=== PATIENT | female | born 1935 | race Caucasian/White ===

== ENCOUNTER 2017-02-18 18:17 | Inpatient (IN) | payer MEDICARE, BC ==
[~2017-02-18] VITALS: Ht 160 cm; Wt 55.3 kg
[2017-02-18 22:53] LABS: BASOPHILS 0.3 % (0-2); EOSINOPHILS 0.4 % (0-7); HEMATOCRIT 41.4 % (36.0-48.0); HEMOGLOBIN 13.6 g/dL (12-16); IMMATURE GRANULOCYTES 0.3 % (0-5); LYMPHOCYTES 25.4 % (15-50); MCHC 32.9 g/dL (31.0-37.0); MCV 91.2 fL (80.0-100.0); MEAN PLATELET VOLUME 10.8 fL (7.4-10.4); NEUTROPHILS 67.6 % (40-80); PLATELET COUNT 195 10x3/uL (130-400); RBC 4.54 10x6/uL (4.00-5.40); RDW 13.3 % (11.5-14.5); WBC 7.6 10x3/uL (4.8-10.8)
[2017-02-18 23:04] LABS: APTT 25.6 SECONDS (22.8-39.4); INR 0.99 (0.85-1.17); PROTIME 12.9 SECONDS (11.6-15.0)
[2017-02-18 23:12] LABS: ALBUMIN 3.7 g/dL (3.4-5.0); ANION GAP 13.1 mmol/L (8-16); BILIRUBIN - TOTAL 0.46 mg/dL (0.2-1.3); CALCIUM 8.8 mg/dL (8.5-10.1); CARBON DIOXIDE 26.7 mmol/L (21.0-32.0); CREATININE - SERUM 0.8 mg/dL (0.6-1.3); POTASSIUM - SERUM 3.8 mmol/L (3.5-5.1); PROTEIN - SERUM 6.9 g/dL (6.4-8.2)
--- NOTE | 2017-02-19 | NUR ---
RECIEVED PT TO FLOOR VIA STRETCHER, HOSPITAL STAFF AND FRIEND. PT IS ALERT AND ORIENTED AND ABLE TO VERBALIZE NEEDS. PT ASSISTED SELF IN TRANSFER FROM STRETCHER TO BED. PT STATES SHE IS ONLY HAVING PAIN WHEN MOVING. SHE STATES SHE HAS NO PAIN WHILE RESTING. VSS. IV IS PATENT AND SALINE LOC AT THIS TIME. NO NEEDS ARE VERBALIZED AT THIS TIME. WILL CONTINUE TO MONITOR. FRIEND AT BEDSIDE. SIDE RAILS ARE UP X 2. BED IS IN LOWEST POSITION. BED ALARM PLACED ON FOR SAFETY. PT IS ORIENTED TO ROOM AND USE OF CALL LIGHT. CALL LIGHT PLACED IN REACH.
--- NOTE | 2017-02-19 00:41 | NUR ---
ADMIT ASSESSMENT COMPLETED. IV FLUIDS HUNG PER ORDER. NO NEEDS ARE VOICED. WILL MONITOR. FRIEND AT BEDSIDE. SIDE RAILS X 2. BED LOW. BED ALARM ON. CALL LIGHT IN REACH.
[2017-02-19] MEDS ORDERED: LISINOPRIL10 MG PO (01:55)
[2017-02-19 01:56] VITALS: BP 155/66; BMI 21.6
[2017-02-19] MEDS ORDERED: PRAVASTATIN SOD10 MG PO (01:56)
[2017-02-19 04:00] VITALS: BP 124/60
--- NOTE | 2017-02-19 07:15 | NUR ---
PATIENT RECEIVED IN MID FOLWER ALERT. NO SIGNS OF DISTRESS NOTED. FAMILY PRESENT. DENIES PAIN. SIDE RAILS UP X2. BED IN LOW POSITION. CALL LIGHT IN REACH.
[2017-02-19 09:03] VITALS: BP 134/54
--- NOTE | 2017-02-19 09:08 | NUR ---
ALERT IN BED. NO SIGNS OF DISTRESS NOTED. SCHEDULED MEDICATION ADMINISTERED. DENIES PAIN. SIDE RAILS UP X2. BED IN LOW POSITION. CALL LIGHT IN REACH.
[2017-02-19 10:35] VITALS: Ht 160 cm; Wt 55.3 kg
--- NOTE | 2017-02-19 11:17 | NUR ---
* Is the patient Alert and Oriented? Yes 0 * How many steps to enter\exit or inside your home? 1 0 * PCP LAURA 0 * Pharmacy [facility] 0 * Preadmission Environment Home Alone 0 * ADLs Independent 0 * Equipment None 0 * List name and contact numbers for known caregivers / representatives who currently or will assist patient after discharge: MARGARET ANNE (NIECE) [phone] 0 * Community resources currently utilized None 0 * Additional services required to return to the preadmission environment? Yes 0 * Can the patient safely return to the preadmission environment? Yes 0 * Has this patient been hospitalized within the prior 30 days at any hospital? No 0 Grand Total: 0 Patient Name: LAMONT GUADARRAMA Admission Status: ER Accout number: [id number] Admission Date: 02-18-2017 : 1937 Admission Diagnosis: Attending: LUKAS Current LOS: 1 Anticipated DC Date: 02-22-2017 Planned Disposition: Primary Insurance: MEDICARE A & B Discharge Planning Comments: CM met with patient to assess discharge planning/needs. Patient states that she lives home alone and has a niece and nephew (Margaret & Omari Eddy) who will drive her home with the time comes. Patient states that she does not have anyone at home to help her, so would like HH and/or rehab. 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 She will need a walker & CM will set that up. CM will continue to follow and assist as needed with discharge planning/needs PCP: [facility] Pharmacy: [facility] ([phone]) Plastics Seasoner Operator: Elena Lynn
--- NOTE | 2017-02-19 11:30 | NUR ---
ALERT IN BED VISITING WITH FAMILY. NO SIGNS OF DISTRESS. NOTED. SIDE RAILS UP X2. BED IN LOW POSITION. CALL LIGHT IN REACH.
[2017-02-19 12:39] VITALS: BP 153/57
--- NOTE | 2017-02-19 12:45 | NUR ---
ALERT IN BED EATING LUNCH. TOLERATING WELL. DENIES NEEDS. SIDE RAILS UP X2. BED IN LOW POSITION. CALL LIGHT IN REACH.
--- NOTE | 2017-02-19 14:15 | NUR ---
PATIENT IN MID GRANDA POSITION RESTING WITH EYES CLOSED. RESPIRATIONS EVEN AND UNLABORED. SIDE RAILS UP X2. BED IN LOW POSITION. CALL LIGHT IN REACH. BED ALARM ON.
[2017-02-19 16:46] VITALS: BP 156/62
--- NOTE | 2017-02-19 17:00 | NUR ---
PATIENT ALERT IN BED. NO SIGNS OF DISTRESS NOTED. SCDS ON BILATERALLY. SIDE RAILS UP X2. BED IN LOW POSITION. CALL LIGHT IN REACH. BED ALARM ON.
[2017-02-19 20:00] VITALS: BP 140/67
--- NOTE | 2017-02-19 20:31 | NUR ---
PATIENT RESTING IN BED. ALERT AND ORIENTED. NO SIGNS OF DISTRESS NOTED. SCHEDULED MED GIVEN. SHIFT ASSESSMENT COMPLETED. DENIES ANY NEEDS AT THIS TIME. BED LOW. CALL LIGHT IN REACH
[2017-02-20 04:00] VITALS: BP 144/60
[2017-02-20 06:45] LABS: HEMOGLOBIN 12.7 g/dL (12-16); MCHC 32.6 g/dL (31.0-37.0); MEAN PLATELET VOLUME 10.8 fL (7.4-10.4); RBC 4.24 10x6/uL (4.00-5.40); RDW 13.8 % (11.5-14.5)
[2017-02-20 06:48] LABS: WBC 5.6 10x3/uL (4.8-10.8)
[2017-02-20 07:03] LABS: CALC OSMOLALITY 289 mosm/kg (275-300); CARBON DIOXIDE 23.8 mmol/L (21.0-32.0); CHLORIDE - SERUM 113 mmol/L (98-107); CREATININE - SERUM 0.7 mg/dL (0.6-1.3); GLUCOSE 94 mg/dL (74-106); POTASSIUM - SERUM 3.9 mmol/L (3.5-5.1); SODIUM 146 mmol/L (136-145); UREA NITROGEN 9 mg/dL (7-18); eGFR NON AFRICAN AMERICAN 85 mL/min (90-120)
--- NOTE | 2017-02-20 07:25 | NUR ---
PT REC'D FROM [facility]. RESTING IN BED READING THE PAPER. AAOX4. NO COMPLAINTS OF PAIN, JUST SOME MILD DISCOMFORT. L KNEE SWOLLEN WITH SOME REDNESS. BED LANZA EMPTIED OF APPROXIMATELY 300CC'S OF CLEAR YELLOW URINE. BED LOW, CALL LIGHT IN REACH, DENIES NEEDS, CPOC.
[2017-02-20 08:59] VITALS: BP 165/69
--- NOTE | 2017-02-20 10:32 | NUR ---
Rehab Prescreening Consult recieved and the chart was reviewed. She is scheduled for OR tomorrow. Rehab will follow her post op to see if she meets IRF criteria. The CM Norma Garcia has been made aware. Gilda Yeager RN Clinical Liaison, Rehab
[2017-02-20 13:22] VITALS: BP 132/53
[2017-02-20 16:29] VITALS: BP 153/72
[2017-02-20 20:00] VITALS: BP 160/59
--- NOTE | 2017-02-21 01:40 | NUR ---
REC'D SITTING UPRIGHT IN BED WATCHING TV. REINFORCED NPO AT MIDNIGHT.HEELS BRIDGED.WILL CONTINUE TO MONITOR FOR ANY CHGES. IN NEUROVASCULAR STATUS LEFT LEG AND FOLLOW CURRENT PLAN OF CARE.
[2017-02-21 04:00] VITALS: BP 162/76
[2017-02-21 05:51] LABS: HEMATOCRIT 39.7 % (36.0-48.0); HEMOGLOBIN 12.8 g/dL (12-16); MCH 29.7 pg (26.0-34.0); MCHC 32.2 g/dL (31.0-37.0); MCV 92.1 fL (80.0-100.0); RBC 4.31 10x6/uL (4.00-5.40); RDW 13.3 % (11.5-14.5); WBC 6.8 10x3/uL (4.8-10.8)
[2017-02-21 06:26] LABS: CALCIUM 8.5 mg/dL (8.5-10.1); CREATININE - SERUM 0.8 mg/dL (0.6-1.3)
[2017-02-21 08:08] VITALS: BP 143/64
--- NOTE | 2017-02-21 09:02 | NUR ---
PATIENT RESTING IN THE BED. PATIENT IS AWAKE, ALERT, AND ORIENTED X4. NO COMPLAINTS OF PAIN AT PRESENT TIME. PATIENT STATES SHE DOESN'T HAVE PAIN UNLESS SHE STARTS TO MOVE AROUND. DENIES ANY NAUSEA. SCD'S NOTED TO PATIENT'S BILATERAL LOWER EXTREMITIES. IV SITE PATENT WITHOUT ANY S/S OF INFECTIN NOTED IN PATIENT'S LEFT HAND. PATIENT DENIES ANY NEEDS AT PRESENT TIME. PATIENT IS NPO FOR SURGERY THIS AFTERNNON ON HER LEFT KNEE. CALL LIGHT IN PATIENT'S REACH. WILL MONITOR PATIENT.
[2017-02-21 14:14] VITALS: BP 141/77
[2017-02-21 20:00] VITALS: BP 131/80
[2017-02-22] VITALS: BP 133/78
--- NOTE | 2017-02-22 01:02 | NUR ---
RESTING WITH EYES CLOSED, NO DISTRESS NOTED, SR'S UP, BED LOW, CL IN REACH
[2017-02-22 04:00] VITALS: BP 154/62
[2017-02-22 05:58] LABS: HEMATOCRIT 39.5 % (36.0-48.0)
--- NOTE | 2017-02-22 07:05 | NUR ---
PATIENT RECEIVED ALERT IN HIGH GRANDA POSITION READING NEWSPAPER. NO SIGNS OF DISTRESS NOTED. DENIES NEEDS. SIDE RAILS UP X2. BED IN LOW POSITION. CALL LIGHT AND EEG TECH BUTTON IN REACH.
[2017-02-22 08:16] VITALS: BP 127/68
--- NOTE | 2017-02-22 09:15 | NUR ---
PATIENT SITTING UP IN CHAIR ALERT. NO SIGNS OF DISTRESS NOTED. SCHEDULED MEDICATION ADMINISTERED. DENIES NEEDS. CALL LIGHT AND WAX MOLDER BUTTON IN REACH.
--- NOTE | 2017-02-22 12:00 | NUR ---
PATIENT SITTING UP IN CHAIR ALERT. NO SIGNS OF DISTRESS NOTED. INCENTIVE SPIROMETER AND TEACHING PROVIDED. STATES UNDERSTANDING. ASSISTED UP TO BSC THEN BACK TO CHAIR ASSIST X2. WELL TOLERATED. CALL LIGHT IN REACH. FAMILY PRESENT.
[2017-02-22 12:37] VITALS: BP 170/53
--- NOTE | 2017-02-22 14:15 | NUR ---
PATIENT ASSISTED UP TO BSC ASSIST X1. BACK TO BED. POSITIONED SELF FOR COMFORT. DENIES NEEDS. SIDE RAILS UP X2. BED IN LOW POSITION. CALL LIGHT IN REACH.
--- NOTE | 2017-02-22 16:08 | NUR ---
Rehab reviewed this patient's chart this afternoon for IRF criteria. Medicare says to meet criteria for the acute rehab a patient must have the need for a minimum of 2 therapies such as PT and OT As well as a medical need that requires a 24/7 RN and an MD at least 3 times a week. At this time she does not have the medical necessity to meet the medicare requirements for acute in-patient rehab. Gilda Yeager RN CL
[2017-02-22 16:48] VITALS: BP 122/60
--- NOTE | 2017-02-22 17:00 | NUR ---
ALERT IN BED WATCHING TV. NO SIGNS OF DISTRESS NOTED. SCHEDULED MEDICATION ADMINISTERED. DENIES NEEDS. SIDE RAILS UP X2. BED IN LOW POSITION. CALL LIGHT IN REACH.
[2017-02-22 20:00] VITALS: BP 143/56
[2017-02-23] VITALS: BP 169/81
[2017-02-23 04:00] VITALS: BP 166/69
[2017-02-23 06:43] LABS: HEMATOCRIT 38.3 % (36.0-48.0); HEMOGLOBIN 12.3 g/dL (12-16)
--- NOTE | 2017-02-23 07:05 | NUR ---
PATIENT RECEIVED ALERT IN HIGH GRANDA POSITION. NO SIGNS OF DISTRESS NOTED. DENIES NEEDS. RATES PAIN 04/25. AUTO RADIATOR MECHANIC BUTTON IN REACH. SIDE RAILS UP X2. BED IN LOW POSITION. CALL LIGHT IN REACH. BED ALARM ON
[2017-02-23 08:38] VITALS: BP 105/78
--- NOTE | 2017-02-23 09:09 | NUR ---
SITTING UP IN CHAIR ALERT. NO SIGNS OF DISTRESS NOTED. SCHEDULED MEDICATION ADMINISTERED. DENIES NEEDS. CALL LIGHT IN REACH.
--- NOTE | 2017-02-23 12:00 | NUR ---
SITTING UP IN CHAIR AT BEDSIDE. NO SIGNS OF DISTRESS NOTED. CALL LIGHT IN REACH.
[2017-02-23 12:13] VITALS: BP 137/87
--- NOTE | 2017-02-23 14:45 | NUR ---
PATIENT IN LOW GRANDA POSITION RESTING WITH EYES CLOSED. RESPIRATIONS EVEN AND UNLABORED. SIDE RAILS UP X2. BED IN LOW POSITION. CALL LIGHT IN REACH. WILL CONTINUE TO MONITOR.
--- NOTE | 2017-02-23 17:15 | NUR ---
ALERT IN BED EATING DINNER. TOLERATING WELL. DENIES NEEDS. SIDE RAILS UP X2. BED IN LOW POSITION. CALL LIGHT AND OXYGEN TANK FILLER BUTTON IN REACH.
[2017-02-23 18:49] VITALS: BP 126/78
[2017-02-23 20:00] VITALS: BP 133/66
--- NOTE | 2017-02-23 20:37 | NUR ---
ASSISTED PATIENT ON AND OFF THE BEDPAN. PATIENT IS RESTING IN BED WITH NO VISIBLE SIGNS OF DISTRESS AND DENIES NEEDS AT THIS TIME. BED IN TH LOWEST POSITION, CALL LIGHT WITHIN REACH, AND BED ALARM ON. ENCOURAGED THE PATIENT TO CALL IF SHE HAS FURTHER NEEDS.
[2017-02-24] VITALS: BP 141/64
[2017-02-24 04:00] VITALS: BP 138/63
[2017-02-24 05:55] LABS: HEMATOCRIT 39.6 % (36.0-48.0); HEMOGLOBIN 12.9 g/dL (12-16)
--- NOTE | 2017-02-24 07:30 | NUR ---
PATIENT RECEIVED ALERT IN BED. NO SIGNS OF DISTRESS NOTED. DENIES NEEDS. SIDE RAILS UP X1. BED IN LOW POSITION. CALL LIGHT IN REACH.
[2017-02-24 07:50] VITALS: BP 145/72
--- NOTE | 2017-02-24 08:40 | NUR ---
ALERT IN BED. SCHEDULED MEDICATION ADMINISTERED. SIDE RAILS UP X2. BED IN LOW POSITION. CALL LIGHT IN REACH.
--- NOTE | 2017-02-24 10:45 | NUR ---
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 NO SIGNS OF DISTRESS NOTED. DENIES NEEDS. CALL LIGHT IN REACH.
[2017-02-24 12:32] VITALS: BP 141/68
--- NOTE | 2017-02-24 12:50 | NUR ---
PATIENT SITTING UP IN CHAIR AT BEDSIDE EATING LUNCH. TOLERATING WELL. GUESTS PRESENT. CALL LIGHT IN REACH.
--- NOTE | 2017-02-24 14:35 | NUR ---
ALERT IN MID GRANDA POSITION VISITING WITH GUESTS. NO SIGNS OF DISTRESS NOTED. SIDE RAILS UP X1. BED IN LOW POSITION. CALL LIGHT IN REACH.
[2017-02-24 15:48] VITALS: BP 142/70
--- NOTE | 2017-02-24 16:30 | NUR ---
PATIENT IN LOW GRANDA POSITION RESTING WITH EYES CLOSED. RESPIRATIONS EVEN AND UNLABORED. SIDE RAILS UP X2. BED IN LOW POSITION. CALL LIGHT IN REACH.
--- NOTE | 2017-02-24 17:27 | NUR ---
ALERT IN HIGH GRANDA POSITION EATING DINNER. TOLERATING WELL. GUESTS PRESENT. SIDE RAILS UP X2. BED IN LOW POSITION. CALL LIGHT IN REACH.
--- NOTE | 2017-02-24 19:46 | NUR ---
ASSISTED THE PATIENT ON AND OFF THE BEDPAN. PATIENT DENIES OTHER NEEDS AT THIS TIME. BED IN LOWEST POSITION, CALL LIGHT WITHIN REACH, AND BED ALARM ON. ENCOURAGED THE PATIENT TO CALL IF SHE HAS FURTHER NEEDS.
[2017-02-24 20:00] VITALS: BP 146/66
[2017-02-25] VITALS: BP 133/62
[2017-02-25 04:00] VITALS: BP 142/63
--- NOTE | 2017-02-25 07:08 | NUR ---
REPORT RECEIVED FROM INSPECTOR OUTSIDE STEAM DISTRIBUTION NURSE. CALL LIGHT IN REACH.
[2017-02-25 07:50] VITALS: BP 146/68
[2017-02-25] MEDS ORDERED: IBUPROFEN400 MG PO (08:22)
--- NOTE | 2017-02-25 08:22 | NUR ---
ASSESSMENT COMPLETED. AM MEDS ADMINISTERED. SCDs TO BLE. BED ALARM ON. IS AT BEDSIDE. IV FLUIDS AND AGRICULTURE SALES ACCOUNT MANAGER DC'D PER ORDERS. IV TO LEFT HAND ALSO DC'D WITH TIP INTACT PER PATIENT REQUEST D/T IRRITATION. CALL LIGHT IN REACH. WILL CONTINUE WITH PLAN OF CARE. FACILITY EXAMINER IN ROOM TO SPEAK WITH PATIENT. PASSWORD ALSO OBTAINED AND PLACED IN COMPUTER.
--- NOTE | 2017-02-25 09:22 | OP ---
PATIENT NAME: LAMONT GUADARRAMA MEDICAL RECORD: [id number] :37 LOCATION:[id number] ADMISSION DATE:02/18/17 SURGEON: ARTURO PANCHAL MD DATE OF OPERATION: 02/21/2017 PREOPERATIVE DIAGNOSIS: Transverse patellar fracture of the left. POSTOPERATIVE DIAGNOSIS: Transverse patellar fracture of the left. PROCEDURE: Open reduction internal fixation of left patellar fracture. SURGEON: Arturo Panchal MD. ANESTHESIA: General. INTRAOPERATIVE COMPLICATIONS: None. SUMMARY OF PATHOLOGIC FINDINGS: The patient with a direct transverse type fracture which reduced nicely and was fixed with compression cannulated screws. OPERATIVE SUMMARY IN DETAIL: After obtaining the appropriate preoperative orthopedic surgery consent as well as anesthetic consultation, evaluation and clearance, the patient was brought to the operating room and placed on the operating room table in supine position. After adequate general laryngeal mask airway was administered, tourniquet was placed about the proximal aspect of the left lower extremity. Left lower extremity was then prepped and draped in a routine sterile fashion. The leg was elevated and exsanguinated, tourniquet inflated to 350 mmHg. Midline incision was taken down to the patellar fracture. Fracture hematoma was very gently removed with a small curette and then under fluoroscopic guidance, 2 large fracture clamps were used to reduce the patella to an anatomic position as seen on AP and lateral planes and then two 4.0 double compression cannulated screws were utilized for fixation which resulted in good anatomic reduction on AP and lateral planes. Final radiographs were taken and submitted for radiologist review. At this point, the retinacular tears were fixed with #2 FiberWire both medially and laterally. Peritenon was sewn with #1 Vicryl. This was followed by 2-0 Vicryl and skin pina. Sterile dressings were applied. The patient was awakened, LMA was removed and she was taken to the recovery room in stable condition. All final needle and sponge counts were correct. TRANSINT:[id number] Voice Confirmation ID: [id number] DOCUMENT ID: [id number] ARTURO PANCHAL MD at 0922 CC: [id number] DICTATION DATE: 02/21/17 1330 SOCIAL MEDIA MARKETING MANAGER: 02/21/17 2350 ADM IN [id number] [place] [address]
--- NOTE | 2017-02-25 10:20 | NUR ---
IN CHAIR. ASSISTED TO BSC AND BACK TO BED. BM NOTED.
[2017-02-25 11:30] VITALS: BP 149/71
--- NOTE | 2017-02-25 12:00 | NUR ---
TEMP WAS 1001. BUT AFTER USE OF IS IT CAME DOWN TO 99.5
--- NOTE | 2017-02-25 14:20 | NUR ---
DENIES NEEDS AT THIS TIME. CALL LIGHT IN REACH.
--- NOTE | 2017-02-25 14:54 | NUR ---
SUSANA WITH [facility] CALLED AND STATED THAT PATIENT WAS ACCEPTED TO NURSING HOME BED. THEY WOULD BE HERE BETWEEN [phone] TODAY. [facility]. NO OTHER CM NEEDS
--- NOTE | 2017-02-25 15:57 | NUR ---
TO BE DCD TO [facility]. NO NEEDS VOICED AT THIS TIME.
--- NOTE | 2017-02-25 16:01 | NUR ---
DRSG TO LEFT KNEE CHANGED PER ORDERS. IBUPROFEN PO. DC INSTRUCTIONS EXPLAINED TO PATIENT. VERBALIZED UNDERSTANDING. REPORT CALLED TO LIDIA BURCIAGA, AT [facility]. ASSISTED TO BSC TO VOID THEN ASSISTED TO WC.
--- NOTE | 2017-02-25 16:10 | NUR ---
DC'D TO HALFWAY VEHICLE VIA WC WITH HALFWAY STAFF.
== END 2017-02-25 16:10 | DRG 517 ==
LOC: D.ER 18:17 → D.MS 23:18
PROVIDERS: Physician Assistant Medical; ADMIT Orthopaedic Surgery
PROC: 0QSF04Z Reposition Left Patella with Internal Fixation Device, Open Approach (ICD-10-PCS; principal; 2017-02-22)
DX: S82.002A Unspecified fracture of left patella, initial encounter for closed fracture (principal); I10 Essential (primary) hypertension; W01.0XXA Fall on same level from slipping, tripping and stumbling without subsequent striking against object, initial encounter; E78.5 Hyperlipidemia, unspecified; K21.9 Gastro-esophageal reflux disease without esophagitis

== ENCOUNTER 2017-04-01 11:30 | Day surgery (SDC) | payer MEDICARE, BC ==
[~2017-04-01] VITALS: Ht 160 cm; Wt 55.5 kg
[~2017-04-01 11:30] MED LIST: IBUPROFEN400 MG PO; LISINOPRIL10 MG PO; PRAVASTATIN SOD10 MG PO
[2017-04-01 13:15] LABS: HEMATOCRIT 45.4 % (36.0-48.0); HEMOGLOBIN 14.7 g/dL (12-16); MCH 30.4 pg (26.0-34.0); MCHC 32.4 g/dL (31.0-37.0); MCV 93.8 fL (80.0-100.0); MEAN PLATELET VOLUME 10.5 fL (7.4-10.4); RBC 4.84 10x6/uL (4.00-5.40); RDW 13.9 % (11.5-14.5); WBC 6.7 10x3/uL (4.8-10.8)
[2017-04-01 14:52] VITALS: BP 172/90; BMI 21.8
[2017-04-01] MEDS ORDERED: MEPERIDINE HCL50 MG PO ×2 (18:46→18:47)
[2017-04-02] VITALS: BP 121/61
[2017-04-02 04:00] VITALS: BP 125/66
[2017-04-02 05:23] VITALS: BP 172/90; Ht 160 cm; Wt 55.5 kg
[2017-04-02 06:44] LABS: HEMATOCRIT 38.8 % (36.0-48.0); HEMOGLOBIN 12.6 g/dL (12-16)
[2017-04-02 08:03] VITALS: BP 126/73
[2017-04-02 11:41] VITALS: BP 148/66
== END 2017-04-02 19:00 | disposition home health service (06) ==
LOC: D.OPS 11:30 → D.MS 19:46 → D.OPS 04-02 19:00
PROVIDERS: Anesthesiology; Orthopaedic Surgery
DX: S82.092A Other fracture of left patella, initial encounter for closed fracture (principal); X58.XXXA Exposure to other specified factors, initial encounter; I10 Essential (primary) hypertension; E78.5 Hyperlipidemia, unspecified; Z79.1 Long term (current) use of non-steroidal anti-inflammatories (NSAID); Z79.899 Other long term (current) drug therapy; Z01.812 Encounter for preprocedural laboratory examination